=== PATIENT | male | born 1980 | race Two or more races ===

== ENCOUNTER 2017-05-09 18:38 | Emergency (ER) | payer OTHER ==
--- NOTE | 2017-05-09 18:59 | EDM.PDOC ---
ED HPI GENERAL MEDICAL PROBLEM - General Chief Complaint: Flank Pain Stated Complaint: RIGHT SIDE BACK PAIN Time Seen by Provider: 05/09/17 18:57 - History of Present Illness INITIAL COMMENTS - FREE TEXT/NARRATIVE: 36-year-old male presents emergency room with sudden onset abdominal pain. This started about 4:30 this afternoon. Patient is never rates pain like this in the past he has no prior history kidney stones however has had sludge in the kidneys in the past. Patient has not had any nausea or vomiting no fevers or chills. Pain is aggravated by nothing specific however seems to be a little more irritated after he voids. He's had no diarrhea or constipation. His pain is worse in the right flank however does radiate down into the groin. Past surgical history significant for a appendectomy and hernia repair on the left. Remaining past medical history is noncontributory family history noncontributory right flank/groin area Pain Score (Numeric/FACES): 7 - Related Data Allergies Allergy/AdvReac Type Severity Reaction Status Date / Time Penicillins Allergy Other Verified 05/09/17 18:51 Home Meds: Home Meds Acetaminophen/HYDROcodone [[place] 325-5 MG] 1 - 2 tab PO Q6H PRN #30 tablet 05/09 [Rx] Tamsulosin HCl [Flomax] 0.4 mg PO Q24H #7 cap.er.24h 05/09/17 [Rx] Past Medical History - Past Health History Medical/Surgical History: Denies Medical/Surgical History - Past Surgical History GI Surgical History: Reports: Appendectomy, Hernia, Abdominal Social & Family History - Family History Family Medical History: Noncontributory - Tobacco Use Smoking Status *Q: Never Smoker - Caffeine Use Caffeine Use: Reports: None - Recreational Drug Use Recreational Drug Use: No ED ROS GENERAL - Review of Systems Review Of Systems: See Below Constitutional: Reports: No Symptoms Respiratory: Reports: No Symptoms Cardiovascular: Reports: No Symptoms GI/Abdominal: Reports: Abdominal Pain. Denies: Constipation, Diarrhea, Nausea, Vomiting : Reports: Flank Pain Musculoskeletal: Reports: No Symptoms Skin: Reports: No Symptoms Neurological: Reports: No Symptoms ED EXAM,LOWER BACK PAIN/INJURY - Physical Exam Exam: See Below Exam Limited By: No Limitations General Appearance: Alert, Mild Distress (From the discomfort) Head: Atraumatic, Normocephalic Neck: Normal Inspection, Supple, Non-Tender, Full Range of Motion Respiratory/Chest: No Respiratory Distress, Lungs Clear, Normal Breath Sounds Cardiovascular: Regular Rate, Rhythm, No Edema, No Murmur GI/Abdominal: Normal Bowel Sounds, Soft, Other (He has some right-sided tenderness this is not worsened with palpation normal bowel sounds no rigidity no rebound or guarding noted) Back Exam: Normal Inspection, CVA Tenderness (R) (Very mild). No: CVA Tenderness (L) Extremities: Normal Inspection, No Pedal Edema Course - Vital Signs Last Recorded V/S: Last Vital Signs Temp 35.9 C 05/09/17 18:40 Pulse 74 05/09/17 18:40 Resp 20 05/09/17 18:40 BP 154/112 H 05/09/17 18:40 Pulse Ox 98 05/09/17 18:40 - Orders/Labs/Meds Orders: Active Orders 24 hr Category Date Time Status Abdomen Pelvis wo Cont [CT] Stat Exams 05/09/17 19:14 Taken Lactated Ringers [Ringers, Lactated] 1,000 ml Med 05/09/17 19:15 Active IV ASDIRECTED Medication Orders Lactated Ringer's (Ringers, Lactated) 1,000 mls @ 150 mls/hr IV ASDIRECTED HOMERO Last Admin: 05/09/17 19:23 Dose: 150 mls/hr Labs: Laboratory Tests 05/09/17 05/09/17 05/09/17 Range/Units 19:05 19:20 19:20 WBC 9.15 H (4.23-9.07) K/mm3 RBC 4.87 (4.63-6.08) M/mm3 Hgb 18 H (13.7-17.5) gm/L Hct 44.6 (40.1-51.0) % MCV 91.6 (79.0-92.2) fl MCH 37.0 H (25.7-32.2) pg MCHC 40.4 H (32.2-35.5) g/dl RDW Std Deviation 40.8 (35.1-43.9) fL Plt Count 201 (163-337) K/mm3 MPV 9.5 (9.4-12.3) fl Neutrophils % (Manual) 70 H (40-60) % Band Neutrophils % 1 (0-10) % Lymphocytes % (Manual) 29 (20-40) % Atypical Lymphs % 0 % Monocytes % (Manual) 0 L (2-10) % Eosinophils % (Manual) 0 L (0.8-7.0) % Basophils % (Manual) 0 L (0.2-1.2) Platelet Estimate Adequate Plt Morphology Comment Normal Anisocytosis 1+ slight RBC Morph Comment Not Reportable Sodium 138 (136-145) mEq/L Potassium 3.8 (3.5-5.1) mEq/L Chloride 101 (98-107) mEq/L Carbon Dioxide 25 (21-32) mEq/L Anion Gap 15.8 H (5-15) BUN 21 H (7-18) mg/dL Creatinine 1.2 (0.7-1.3) mg/dL Est Cr Clr Drug Dosing 102.43 mL/min Estimated GFR (MDRD) > 60 (>60) mL/min BUN/Creatinine Ratio 17.5 (14-18) Glucose 101 (74-106) mg/dL Calcium 9.1 (8.5-10.1) mg/dL Urine Color Yellow (Yellow) Urine Appearance Clear (Clear) Urine pH 8.5 H (5.0-8.0) Ur Specific [place] 1.020 (1.005-1.030) Urine Protein 1+ H (Negative) Urine Glucose (UA) Negative (Negative) Urine Ketones 3+ H (Negative) Urine Occult Blood Negative (Negative) Urine Nitrite Negative (Negative) Urine Bilirubin Negative (Negative) Urine Urobilinogen 0.2 (0.2-1.0) Ur Leukocyte Esterase Negative (Negative) Urine RBC 0-5 (0-5) /hpf Urine WBC 0-5 (0-5) /hpf Ur Epithelial Cells Not seen (0-5) /hpf Urine Bacteria Not seen (FEW) /hpf Urine Mucus Few (FEW) /hpf Meds: Medications Generic Name Dose Route Start Last Admin Trade Name Freq PRN Reason Stop Dose Admin Lactated Ringer's 1,000 mls @ 150 mls/hr 05/09/17 19:15 05/09/17 19:23 Ringers, Lactated IV 150 mls/hr ASDIRECTED HOMERO Administration Discontinued Medications Generic Name Dose Route Start Last Admin Trade Name Freq PRN Reason Stop Dose Admin Fentanyl 50 mcg 05/09/17 19:12 05/09/17 19:24 Sublimaze IVPUSH 05/09/17 19:13 50 mcg ONETIME ONE Administration Ketorolac Tromethamine 15 mg 05/09/17 19:12 05/09/17 19:23 Toradol IVPUSH 05/09/17 19:13 15 mg ONETIME ONE Administration Tamsulosin HCl 0.4 mg 05/09/17 20:59 Flomax PO 05/09/17 21:00 ONETIME ONE - Re-Assessments/Exams Free Text/Narrative Re-Assessment/Exam: 05/09/17 21:11 Patient had an IV started of LR to 150 mL an hour he was given 15 mg Toradol 50 g of fentanyl he has done well since this. Laboratory evaluation shows urine that does not suggest an infectious process no significant hematuria just a few cells noted. Chemistries for mildly elevated BUNs otherwise no changes CT of the abdomen shows a 3 mm stone at the right UVJ. Patient will be discharged at this point started on Flomax [place] as needed Departure - Departure Time of Disposition: 21:06 Disposition: Home, Self-Care 01 Clinical Impression: Kidney stone on right side - Discharge Information Prescriptions: Acetaminophen/HYDROcodone [[place] 325-5 MG] 1 - 2 tab PO Q6H PRN #30 tablet PRN Reason: Abdominal Pain Tamsulosin HCl [Flomax] 0.4 mg PO Q24H #7 cap.er.24h Instructions: Kidney Stones, [id number] Referrals: PCP,None [Primary Care Provider] - Forms: ED Department Discharge Additional Instructions: Return to the emergency room with any questions problems worsening symptoms. You have kidney stone on the right side it is close to going into the bladder. Strain your urine and try and find the stone. You been started on Flomax take one daily here first dose was here in the emergency room. Start this tomorrow evening. You been started on [place] this is a pain pill take one or 2 every 6 hours as needed for the more severe pain he may try ibuprofen for the less severe pain. Push lots of fluids so you were voiding frequently. Soft diet. - My Orders Last 24 Hours: My Active Orders 05/09/17 19:14 Abdomen Pelvis wo Cont [CT] Stat 05/09/17 19:15 Lactated Ringers [Ringers, Lactated] 1,000 ml IV ASDIRECTED - Assessment/Plan Last 24 Hours: My Active Orders 05/09/17 19:14 Abdomen Pelvis wo Cont [CT] Stat 05/09/17 19:15 Lactated Ringers [Ringers, Lactated] 1,000 ml IV ASDIRECTED
[2017-05-09] MEDS: Lactated Ringers 1,000 ML IV SCH (19:23)
[2017-05-09] MEDS: Ketorolac 15 MG/ML SDV IVPUSH ONE (19:23)
[2017-05-09] MEDS: fentaNYL 100 MCG/2 ML SDV IVPUSH ONE (19:24)
[2017-05-09] MEDS: Tamsulosin 0.4 MG Cap.ER PO ONE (21:19)
--- NOTE | 2017-05-10 08:17 | CT ---
CT abdomen and pelvis Technique: Multiple axial sections were obtained from above the dome of the diaphragm inferiorly through the pubic symphysis. Intravenous and oral contrast was not utilized. Study has been performed as a renal stone protocol. Findings: Right ureter is mildly prominent with mild surrounding inflammatory change. These findings are compatible with a 3-4 mm obstructing stone within the distal right ureter at the UVJ. No other abnormal calcifications are seen along the course of the ureters. No abnormal calcifications are seen within the kidneys. Visualized lung bases show nothing acute. Noncontrast appearance of the liver and spleen appears within normal limits. Adrenal glands show no nodule. Pancreas is within normal limits. Gallbladder contains no calcified gallstones. Aorta shows no aneurysmal dilatation. No retroperitoneal adenopathy is seen. Appendix not visualized. No pelvic mass or adenopathy is seen. No free fluid is seen. Bone window settings were reviewed which show minimal degenerative change. Incidental disc protrusion is seen into the superior endplate of L4 as a normal variant. Impression: 1. Mildly prominent right ureter with mild surrounding inflammatory change compatible with a 3-4 mm stone within the distal right ureter at the UVJ causing obstruction. 2. Other incidental findings. Diagnostic code #3 I agree with preliminary report from [facility], finalized at 05/09/17, 9:32 PM Central Time
== END 2017-05-09 21:25 | disposition home or self-care (01) ==
LOC: JD.ED 18:38
DX: N20.2 Calculus of kidney with calculus of ureter (principal); Z88.0 Allergy status to penicillin
CPT/HCPCS: 36415; 74176; 80048; 81001; 85025; 96361; 96374; 96375; 99284; A9270; J1885; J3010; J7120

== ENCOUNTER 2022-10-22 16:09 | Emergency (ER) | payer OTHER ==
[2022-10-22 20:19] LABS: BASOPHILS PERCENT AUTO 0.2 % (0.0-1.0); EOSINOPHILS ABSOLUTE AUTO 0.1 K/mm3 (0.0-0.4); EOSINOPHILS PERCENT AUTO 0.5 % (0.0-6.0); HEMOGLOBIN 17.1 gm/dl (14.0-18.0); IMMATURE GRAN ABSOLUTE AUTO 0.04 K/mm3 (0.00-0.05); IMMATURE GRAN PERCENT AUTO 0.4 % (0.0-0.4); LYMPHOCYTES ABSOLUTE AUTO 2.2 K/mm3 (1.0-4.8); LYMPHOCYTES PERCENT AUTO 19.7 % (24.0-44.0); MEAN CORPUSCULAR HEMOGLOBIN 34.5 pg (28.0-32.0); MEAN CORPUSCULAR HGB CONC 37.2 g/dl (32.0-36.0); MEAN CORPUSCULAR VOLUME 92.9 fl (83.0-99.0); MEAN PLATELET VOLUME 9.5 fl (9.4-12.4); MONOCYTES ABSOLUTE AUTO 0.8 K/mm3 (0.0-0.8); MONOCYTES PERCENT AUTO 7.5 % (0.0-8.0); NEUTROPHILS ABSOLUTE AUTO 7.9 K/mm3 (1.8-7.7); NEUTROPHILS PERCENT AUTO 71.7 % (41.0-71.0); PLATELET COUNT,PLT 176 K/mm3 (150-400); RED BLOOD CELL COUNT 4.95 M/mm3 (4.52-5.90); WHITE BLOOD CELL COUNT,WBC 11.04 K/mm3 (3.9-11.3)
[2022-10-22 20:42] LABS: A/G RATIO 1.1 (1-2); ALBUMIN 3.7 g/dl (3.4-5.0); ANION GAP 11.9 (5-15); BILIRUBIN TOTAL 1.1 mg/dL (0.2-1.0); BUN/CREATININE RATIO 10.8 (14-18); CALCIUM 9.1 mg/dL (8.5-10.1); CREATININE 1.2 mg/dL (0.7-1.3); POTASSIUM,K 3.9 mEq/L (3.5-5.1); PROTEIN TOTAL,TP 7.2 g/dl (6.4-8.2)
[2022-10-22 21:01] LABS: LACTIC ACID 0.9 mmol/L (0.4-2.0)
[2022-10-22] MEDS ORDERED: Iopamidol 612 MG/ML 100 ML Bottle IVPUSH ONE (21:33)
[2022-10-22] MEDS ORDERED: cefTRIAXone 1 GM Vial IM ONE (23:08)
[2022-10-22] MEDS ORDERED: Doxycycline Monohydrate 100 MG Cap PO ONE (23:09)
[2022-10-22] MEDS ORDERED: cefTRIAXone 1 GM, Lidocaine 1% 2.1 ML IM ONE ×2 (23:22)
== END 2022-10-23 | disposition home or self-care (01) ==
LOC: JD.ED 16:09
DX: L03.115 Cellulitis of right lower limb (principal); Z88.0 Allergy status to penicillin
CPT/HCPCS: 36415; 73701; 80053; 83605; 85025; 86140; 96372; 99284; A9270; J0696; Q9967; 99283; J3490

== ENCOUNTER 2024-05-30 15:12 | Emergency (ER) | payer OTHER ==
[2024-05-30] MEDS: Diphtheria,Pertussis(Acell),Tetanus Vaccine 0.5 ML Syringe IM ONE (15:59)
[2024-05-30] MEDS: Bacitracin Oint 15 GM Tube TOP ONE (16:53)
[2024-05-30] MEDS: Ketorolac 30 MG/ML SDV IVPUSH ONE (18:00)
== END 2024-05-30 18:28 | disposition home or self-care (01) ==
LOC: JD.ED 15:12
DX: T20.26XA Burn of second degree of forehead and cheek, initial encounter (principal); T20.23XA Burn of second degree of chin, initial encounter; T23.202A Burn of second degree of left hand, unspecified site, initial encounter; I10 Essential (primary) hypertension; Z88.0 Allergy status to penicillin; Z23 Encounter for immunization; Z79.899 Other long term (current) drug therapy; X08.8XXA Exposure to other specified smoke, fire and flames, initial encounter; Y93.89 Activity, other specified
CPT/HCPCS: 90471; 90715; 96374; 99284; A9270; J1885